=== PATIENT | female | born 1960 ===

== ENCOUNTER 2025-02-13 08:41 | Outpatient (CLI) | payer SELFPAY ==
--- NOTE | ~2025-02-13 | US_ITS ---
EXAMINATION: US thyroid DATE: 02/13/2025 08:55 INDICATION: Left thyroid nodule. TECHNIQUE: Multiple ultrasound images of the thyroid were obtained. COMPARISON: None. FINDINGS: The right thyroid lobe measures 4.3 x 1.1 x 1.6 cm. The left thyroid lobe measures 7.1 x 3.9 x 4.0 c m. The isthmus measures 0.2 cm. There is normal echotexture and echogenicity throughout the thyroid g land. Left thyroid nodule: mostly solid, slightly hypoechoic, wider than tall, slightly hypervascular , with scattered microcalcifications and lobulated margins, measuring 5.7 x 4.3 x 3.7 cm (TI-RADS 5). Normal vascular flow is present in the remainder of the gland. IMPRESSION: Highly suspicious left thyroid nodule, recommend FNA. Reviewed, dictated and finalized at location K.
== END 2025-02-13 08:42 | disposition home or self-care (01) ==
DX: E04.1 Nontoxic single thyroid nodule (principal)
CPT/HCPCS: 76536